=== PATIENT | female | born 2000 | race Caucasian/White ===

== ENCOUNTER 2020-12-13 10:16 | Emergency (ER) | payer MEDICAID ==
[~2020-12-13] VITALS: Ht 160 cm; Wt 68.0 kg
[2020-12-13 10:55] LABS: BASOPHILS % 0.3 % (0.0-2.0); EOSINOPHILS % 0.9 % (0.0-5.0); HEMATOCRIT. 41.1 % (36.0-48.0); HEMOGLOBIN. 14.2 g/dL (12.0-16.0); LYMPHOCYTES % 18.1 % (20.0-50.0); MEAN CORPUSCULAR HEMOGLOBIN 30.9 pg (28.0-32.0); MEAN PLATELET VOLUME 8.5 fl (7.4-10.4); MONOCYTES % 5.3 % (2.0-8.0); NEUTROPHILS % 75.4 % (40.0-76.0); PLATELET 222 x1000/uL (130-400); RED BLOOD CELL COUNT 4.62 mill/uL (4.2-5.4); RED CELL DISTRIBUTION WIDTH 13.7 % (11.6-14.6)
[2020-12-13 11:08] LABS: CHLORIDE 101 mEq/L (98-107)
[2020-12-13] MEDS ORDERED: ACETAMINOPHEN 325MG TABLET PO ONE (12:00)
[2020-12-13 12:20] LABS: CLARITY URINE CLOUDY (CLEAR); COLOR URINE YELLOW (YELLOW); KETONES URINE NEGATIVE (NEGATIVE); LEUKOCYTE ESTERASE URINE 2+ (NEGATIVE); NITRITE URINE NEGATIVE (NEGATIVE); OCCULT BLOOD URINE NEGATIVE (NEGATIVE); PH URINE 7.5 (4.5-8.0); PROTEIN URINE NEGATIVE (NEGATIVE); SPECIFIC GRAVITY URINE 1.008 (1.005-1.030); UROBILINOGEN URINE 0.2 E.U./dL (0.2-1.0)
[2020-12-13] MEDS ORDERED: NITR100C PO (12:41)
[2020-12-13] MEDS ORDERED: TOPUD PO (12:41)
[2020-12-13 13:24] VITALS: BP 110/67
== END 2020-12-13 13:35 | disposition home or self-care (01) ==
LOC: ER 10:16
DX: R55 Syncope and collapse (principal); N39.0 Urinary tract infection, site not specified
CPT/HCPCS: 36415; 71045; 80053; 81003; 81025; 84484; 85025; 85610; 87086; 93005; 99285; Z7610